=== PATIENT | female | born 2000 | race Caucasian/White ===

== ENCOUNTER 2021-06-08 19:34 | Emergency (ER) | payer OTHER, BC ==
[2021-06-08] MEDS ORDERED: Acetaminophen 500 MG TAB ONE (20:29)
[2021-06-08] MEDS ORDERED: Ibuprofen 200 MG TAB ONE (20:29)
== END 2021-06-08 20:30 | disposition home or self-care (01) ==
LOC: CSHERS 19:34
DX: S16.1XXA Strain of muscle, fascia and tendon at neck level, initial encounter (principal); M79.10 Myalgia, unspecified site; V89.2XXA Person injured in unspecified motor-vehicle accident, traffic, initial encounter
CPT/HCPCS: 99283